=== PATIENT | female | born 1990 | race Caucasian/White ===

== ENCOUNTER 2023-11-10 22:07 | Emergency (ER) | payer MEDICAID, OTHER ==
[~2023-11-10] VITALS: Ht 170.2 cm; Wt 81.8 kg
[2023-11-10 22:40] VITALS: BP 104/48; PULSE 99; RESP 16; O2SAT 100
== END 2023-11-11 00:01 | disposition left against medical advice (07) ==
LOC: ER 22:07
DX: R10.9 Unspecified abdominal pain (principal); R11.2 Nausea with vomiting, unspecified; Z53.21 Procedure and treatment not carried out due to patient leaving prior to being seen by health care provider